=== PATIENT | female | born 2000 | race Caucasian/White ===

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

== ENCOUNTER → 2022-01-28 | Outpatient (CLI) | payer OTHER ==
--- NOTE | 2022-01-29 11:59 | US ---
EXAMINATION TYPE: Ultrasound OB <= 14 week fetus DATE OF EXAM: 01/28/2022 4:30 PM COMPARISON: NONE CLINICAL HISTORY: 21-year-old female Z36.89 Confirm dates. G1. EXAM PERFORMED: Transabdominal (TA) FINDINGS: EXAM MEASUREMENTS: GESTATIONAL AGE / DATING Physician Established: Not yet established. Dates by LMP: (12 weeks/1 day) EDC: 08/11/2022 Dates by First Scan: This is first scan. Dates by Current Scan for: (12 weeks/2 days) EDC: 08/10/2022 MATERNAL ANATOMY Uterus: 16.6 x 9.6 x 7.2 cm. Anteverted. Right Ovary: 3.2 x 2.2 x 1.7 cm. Left Ovary: 2.8 x 2.0 x 1.6 cm. Post CDS / Adnexa: Appear wnl Presence of free fluid: None seen Presence of corpus luteal cyst: None seen Presence of subchorionic bleed: Possible: hypoechoic area seen adjacent the gestational sac: 1.3 x 0. 9 x 0.8 cm to the left and inferiorly GESTATION / SURVEY CRL: 5.77 cm.(12 weeks/2 days) Yolk Sac (normal less than 6mm): 4.4 mm. Heart Rate: 162 bpm Rhythm: Normal IUP: Viable IUP Nuchal Translucency 10-14wks (normal less than 3mm): 1.2 mm. Age Appropriate Anatomy Cord Insertion: Not well seen. Limbs: Limited visibility. Calvarium: Visualized Manager Electronic notes: Exam slightly limited due to body habitus. Date of LMP: 11/04/2021 IMPRESSION: 1. Single live intrauterine with estimated gestational age of 12 weeks 1 day by LMP. Curren t ultrasound biometry is concordant (12 weeks 2 days). 2. Possible small 1.3 cm perigestational bleed inferiorly 3. Complete survey recommended at 18-20 weeks.
== END | disposition home or self-care (01) ==
LOC: RADUSWWP 16:04
PROVIDERS: ATTEND Obstetrics & Gynecology
DX: Z36.89 Encounter for other specified antenatal screening (principal)
CPT/HCPCS: 76801; 76813

== ENCOUNTER 2022-05-18 12:47 | Outpatient (CLI) | payer OTHER ==
[2022-05-18 14:25] LABS: Appearance,Urine Clear (Clear); Bilirubin,Urine Negative (Negative); Blood,Urine Negative (Negative); Color,Urine Light Yellow; Glucose,Urine (UA) Negative (Negative); Ketones,Urine Negative (Negative); Leukocyte Esterase,Urine Negative (Negative); Nitrite,Urine Negative (Negative); Protein,Urine Negative (Negative); Specific Gravity,Urine 1.008 (1.001-1.035); Urobilinogen,Urine <2.0 mg/dL (<2.0)
[2022-05-18 15:11] VITALS: BP 119/74; PULSE 101; RESP 14; TEMP 97.3
--- NOTE | 2022-05-20 07:36 | P.MSEPDOC ---
Presenting Problems - Arrival Data Date of Arrival on Unit: 05/18/22 Time of Arrival on Unit: 12:48 Mode of Transport: Ambulatory - Complaint OB-Reason for Admission/Chief Complaint: Decreased Movement Medical History - Information : 1 Para: 0 Term: 0 : 0 Abortions: Spontaneous or Elective: 0 Number of Living Children: 0 - Gestational Age Gestational Age by SEBASTIEN (wks/days): 27 Weeks and 6 Days Review of Systems - Review of Systems Constitutional: No problems Breast: No problems ENT: No problems Cardiovascular: No problems Respiratory: No problems Gastrointestinal: No problems Genitourinary: No problems Musculoskeletal: No problems Neurological: No problems Skin: No problems Vital Signs - Temperature Temperature: 97.3 F Temperature Source: Temporal Artery Scan - Pulse Right Brachial Pulse Rate: 101 Pulse Assessment Method: Auscultation - Respirations Respiratory Rate: 14 Oxygen Delivery Method: Room Air - Blood Pressure Right Arm Blood Pressure: 119/74 Blood Pressure Mean: 89 Blood Pressure Source: Automatic Cuff Medical Screen Scoring - Cervical Exam Dilation (cm): 0 - Uterine Contractions Frequency From (mins): 3 Frequency To (mins): 5 Duration From (seconds): 30 Duration To (seconds): 4 Intensity: Mild Resting: Soft to palpation - Assessment - Baby A Baseline FHR: 135 Heart Rate - NICHD Category: Category I (Normal) NST: Reactive Physician Notification - Physician Notified Physician Notified Date: 05/18/22 Physician Notified Time: 13:42 Physician: Vee Rincon Order Received: Yes - Notification Comment Comment: ua ordered. reported ua results at 1436. dr rincon discharges pt home Maternal Triage Index - Maternal Triage Index Presenting for scheduled procedure w/no complaint: No - Stat/Priority 1 Stat Priority 1: No - Urgent/Priority 2 Urgent Priority 2: No - Prompt/Priority 3 Prompt Priority 3: No - Non-Urgent/Priority 4 Non-Urgent Priority 4: Yes Criteria Met for Priority 4: cramping, complaints of decreased movement Disposition - Disposition OB Disposition: Discharge to home Discharge Date: 05/18/22 Discharge Time: 14:44 I agree with the RN Medical Screening Exam: Yes Case reviewed; plan agreed upon as documented in EMR&OBIX.: Yes Diagnosis: DECREASED MOVEMENTS, SECOND TRIMESTER, UNSP
== END 2022-05-18 14:44 | disposition home or self-care (01) ==
LOC: FBPOP 12:47
PROVIDERS: ATTEND Obstetrics & Gynecology
DX: O36.8120 Decreased fetal movements, second trimester, not applicable or unspecified (principal); Z3A.27 27 weeks gestation of pregnancy
CPT/HCPCS: 81003; G0463; 99213

== ENCOUNTER 2022-06-05 15:30 | Outpatient (CLI) | payer OTHER ==
[2022-06-05 16:24] VITALS: BP 119/74; PULSE 109; RESP 16; TEMP 97.5
--- NOTE | 2022-06-06 12:12 | P.MSEPDOC ---
Presenting Problems - Arrival Data Date of Arrival on Unit: 06/05/22 Time of Arrival on Unit: 15:30 Mode of Transport: Ambulatory - Complaint OB-Reason for Admission/Chief Complaint: Pain Comment: upper abd pain, headache, floaters in vision Medical History - Information : 1 Para: 0 Term: 0 : 0 Abortions: Spontaneous or Elective: 0 Number of Living Children: 0 - Gestational Age Gestational Age by SEBASTIEN (wks/days): 30 Weeks and 3 Days Review of Systems - Review of Systems Constitutional: No problems Breast: No problems ENT: No problems Cardiovascular: No problems Respiratory: No problems Gastrointestinal: No problems Genitourinary: No problems Musculoskeletal: No problems Neurological: No problems Skin: No problems Vital Signs - Temperature Temperature: 97.5 F Temperature Source: Temporal Artery Scan - Pulse Right Sitting Pulse Rate: 109 Pulse Assessment Method: Automatic Cuff - Respirations Respiratory Rate: 16 Oxygen Delivery Method: Room Air O2 Sat by Pulse Oximetry: 97 - Blood Pressure Right Arm Blood Pressure: 119/74 Blood Pressure Mean: 89 Blood Pressure Source: Automatic Cuff Medical Screen Scoring - Assessment - Baby A Baseline FHR: 135 Heart Rate - NICHD Category: Category I (Normal) NST: Reactive Physician Notification - Physician Notified Physician Notified Date: 06/05/22 Physician Notified Time: 16:10 Physician: Vee Rincon Order Received: Yes (d/c home) Maternal Triage Index - Non-Urgent/Priority 4 Non-Urgent Priority 4: Yes Criteria Met for Priority 4: upper abd pain, headache, floaters, bp 119/74 Disposition - Disposition OB Disposition: Discharge to home Discharge Date: 06/05/22 Discharge Time: 16:17 I agree with the RN Medical Screening Exam: Yes Case reviewed; plan agreed upon as documented in EMR&OBIX.: Yes Diagnosis: RELATED CONDITIONS, UNSPECIFIED, THIRD TRIMESTER
== END 2022-06-05 16:17 | disposition home or self-care (01) ==
LOC: FBPOP 15:30
PROVIDERS: ATTEND Obstetrics & Gynecology
DX: O26.893 Other specified pregnancy related conditions, third trimester (principal); Z3A.30 30 weeks gestation of pregnancy
CPT/HCPCS: 59025; G0463; 99213

== ENCOUNTER 2022-06-18 14:43 | Outpatient (CLI) | payer OTHER ==
[2022-06-18 15:15] LABS: Appearance,Urine Cloudy (Clear); Bacteria,Urine Few /hpf; Bilirubin,Urine Negative (Negative); Blood,Urine Negative (Negative); Color,Urine Yellow; Glucose,Urine (UA) Negative (Negative); Hyaline Casts,Urine 4 /lpf (0-2); Ketones,Urine Negative (Negative); Leukocyte Esterase,Urine Trace (Negative); Mucus,Urine Rare /hpf; Nitrite,Urine Negative (Negative); Protein,Urine Trace (Negative); RBC,Urine <1 /hpf (0-5); Specific Gravity,Urine 1.022 (1.001-1.035); Squamous Epithelial Cell,Urine 7 /hpf (0-4); Urobilinogen,Urine <2.0 mg/dL (<2.0); WBC,Urine 36 /hpf (0-5)
[2022-06-18 15:42] LABS: Basophils % (A) 0 %; Eosinophils # (A) 0.1 k/uL (0-0.7); Eosinophils % (A) 1 %; HGB 12.2 gm/dL (11.4-16.0); Hypochromasia Slight; Lymphocytes # (A) 1.6 k/uL (1.0-4.8); Lymphocytes % (A) 17 %; MCH 28.5 pg (25.0-35.0); Mean Platelet Volume 8.8; Monocytes # (A) 0.6 k/uL (0-1.0); Monocytes % (A) 6 %; Neutrophils # (A) 7.4 k/uL (1.3-7.7); Neutrophils % (A) 75 %; Platelet Count 244 k/uL (150-450); RBC 4.28 m/uL (3.80-5.40); RDW 13.4 % (11.5-15.5); WBC 9.8 k/uL (3.8-10.6)
[2022-06-18 15:47] LABS: ALT 15 U/L (4-34); AST 16 U/L (14-36); African American GFR (CKD) >90 (>60 ml/min/1.73 sqM); Blood Urea Nitrogen 9 mg/dL (7-17); LDH 377 U/L (313-618); Non-African American GFR(CKD) >90 (>60 ml/min/1.73 sqM); Uric Acid 4.2 mg/dL (3.7-7.4)
[2022-06-18 16:20] LABS: Creatinine,Urine Random 148.5 mg/dL; Protein/Creatinine Ratio,Urine 0.061
[2022-06-18 16:47] VITALS: BP 129/69; PULSE 84; RESP 16; TEMP 98
--- NOTE | 2022-07-15 07:59 | P.MSEPDOC ---
Presenting Problems - Arrival Data Date of Arrival on Unit: 06/18/22 Time of Arrival on Unit: 14:43 Mode of Transport: Ambulatory - Complaint OB-Reason for Admission/Chief Complaint: Headache, Visual Disturbances Medical History - Information : 1 Para: 0 Term: 0 : 0 Abortions: Spontaneous or Elective: 0 Number of Living Children: 0 - Gestational Age Gestational Age by SEBASTIEN (wks/days): 32 Weeks and 2 Days Review of Systems - Review of Systems Constitutional: No problems Breast: No problems ENT: No problems Cardiovascular: No problems Respiratory: No problems Gastrointestinal: No problems Genitourinary: No problems Musculoskeletal: No problems Neurological: No problems Skin: No problems Vital Signs - Temperature Temperature: 98.0 F Temperature Source: Oral - Pulse Right Brachial Pulse Rate: 84 Pulse Assessment Method: Automatic Cuff - Respirations Respiratory Rate: 16 Oxygen Delivery Method: Room Air - Blood Pressure Right Arm Blood Pressure: 129/69 Blood Pressure Mean: 89 Blood Pressure Source: Automatic Cuff Medical Screen Scoring - Cervical Exam Membranes: Intact - Assessment - Baby A Baseline FHR: 135 Heart Rate - NICHD Category: Category I (Normal) NST: Reactive Physician Notification - Physician Notified Physician Notified Date: 06/18/22 Physician Notified Time: 16:15 Physician: Rocío Gutierres New Order Received: Yes - Notification Comment Comment: d/c home Maternal Triage Index - Maternal Triage Index Presenting for scheduled procedure w/no complaint: No - Stat/Priority 1 Stat Priority 1: No - Urgent/Priority 2 Urgent Priority 2: No - Prompt/Priority 3 Prompt Priority 3: Yes Criteria Met for Priority 3: c/o headache - Non-Urgent/Priority 4 Non-Urgent Priority 4: No Disposition - Disposition OB Disposition: Discharge to home Discharge Date: 06/18/22 Discharge Time: 16:30 I agree with the RN Medical Screening Exam: Yes Case reviewed; plan agreed upon as documented in EMR&OBIX.: Yes Diagnosis: HEADACHE, UNSPECIFIED
== END 2022-06-18 16:30 | disposition home or self-care (01) ==
LOC: FBPOP 14:43
PROVIDERS: ATTEND Obstetrics & Gynecology
DX: O26.893 Other specified pregnancy related conditions, third trimester (principal); Z3A.32 32 weeks gestation of pregnancy; R51.9 Headache, unspecified
CPT/HCPCS: 59025; 82570; 84156; 82565; 83615; 84450; 84460; 84520; 84550; 85025; 81001; G0463; 99215

== ENCOUNTER → 2022-07-04 | Outpatient (CLI) | payer OTHER ==
[2022-07-04 20:40] VITALS: PULSE 96; RESP 16; TEMP 97.5
--- NOTE | 2022-07-15 08:01 | P.MSEPDOC ---
Presenting Problems - Arrival Data Date of Arrival on Unit: 07/04/22 Time of Arrival on Unit: 12:19 Mode of Transport: Ambulatory - Complaint OB-Reason for Admission/Chief Complaint: Possible Onset of Labor, Other Comment: pt presents to triage after speaking with compliance consultant ob last night (Al) for complaints of possible loss of mucus plug, period like cramps that come and go in back and stomache, pelvic pressure, inttermittent nausea and vomiting but keeping food and fluids down, feelings of dampness in underware unsure if water is broke. All above symptoms have been going on for " 2-3 days Medical History - Information : 1 Para: 0 Term: 0 : 0 Abortions: Spontaneous or Elective: 0 Number of Living Children: 0 - Gestational Age Gestational Age by SEBASTIEN (wks/days): 34 Weeks and 4 Days Review of Systems - Review of Systems Constitutional: No problems Breast: No problems ENT: No problems Cardiovascular: No problems Respiratory: No problems Gastrointestinal: No problems Genitourinary: No problems Musculoskeletal: No problems Neurological: No problems Skin: No problems Vital Signs - Temperature Temperature: 97.5 F Temperature Source: Temporal Artery Scan - Pulse Right Pulse Rate: 96 Pulse Assessment Method: Automatic Cuff - Respirations Respiratory Rate: 16 Oxygen Delivery Method: Room Air O2 Sat by Pulse Oximetry: 98 Medical Screen Scoring - Cervical Exam Dilation (cm): 0 Effacement (%): 0 - Uterine Contractions Frequency From (mins): 0 Frequency To (mins): 0 Duration From (seconds): 0 Duration To (seconds): 0 Resting: Soft to palpation - Assessment - Baby A Baseline FHR: 130 Heart Rate - NICHD Category: Category I (Normal) NST: Reactive Physician Notification - Physician Notified Physician Notified Date: 07/04/22 Physician Notified Time: 14:25 Physician: Rocío Gutierres New Order Received: Yes - Notification Comment Comment: Dr Cleary updated with pts reason for visit, vitals, assessment, cervix closed thick soft. amnisure neg, nst reactive. cat 1 fht. no contractions seen on monitor. pt n/v/headache resolved at present. orders received for pt to be discharged and keep scheduled appt next week Maternal Triage Index - Maternal Triage Index Presenting for scheduled procedure w/no complaint: No - Stat/Priority 1 Stat Priority 1: No - Urgent/Priority 2 Urgent Priority 2: No - Prompt/Priority 3 Prompt Priority 3: Yes Criteria Met for Priority 3: 34 4/ cramping questionable leaking of fluid and mucus Disposition - Disposition OB Disposition: Discharge to home Discharge Date: 07/04/22 Discharge Time: 14:50 I agree with the RN Medical Screening Exam: Yes Case reviewed; plan agreed upon as documented in EMR&OBIX.: Yes Diagnosis: PRIMARY INADEQUATE CONTRACTIONS
== END ==
LOC: FBPOP 12:19
PROVIDERS: ATTEND Obstetrics & Gynecology
DX: O26.893 Other specified pregnancy related conditions, third trimester (principal); Z3A.34 34 weeks gestation of pregnancy; O62.0 Primary inadequate contractions
CPT/HCPCS: 59025; G0463; 99213

== ENCOUNTER 2022-07-31 05:39 | Inpatient (IN) | payer OTHER ==
[2022-07-31] MEDS ORDERED: TERBUTALINE 1 MG/ML VIAL SQ PRN (06:00)
[2022-07-31] MEDS ORDERED: LIDOCAINE 0.5% (PF) 5 MG/ML (50 ML SDV) SQ PRN (06:00)
[2022-07-31] MEDS ORDERED: OXYTOCIN 30 UNITS/500 ML NS 30 UNIT in SALINE 1 500ML.BAG IV SCH ×2 (06:00→21:20)
--- NOTE | 2022-07-31 06:31 | P.HPOB ---
History of Present Illness H&P Date: 07/31/22 Chief Complaint: Leaking of fluid This patient is a pleasant 21-year-old 1 para 0 female estimated date of confinement 08/11/2022 estimated gestational age 38-3/7 weeks who presents to labor and delivery with complaints of gush of fluid earlier this morning. Patient's care is per Dr. Gutierres. It has been complicated by headaches but has had a negative evaluation for preeclampsia. Patient is not having any regular contractions. Review of Systems Genitourinary: Reports Menstruation: Reports amenorrhea Past Medical History Past Medical History: Hypertension History of Any Multi-Drug Resistant Organisms: None Reported Past Surgical History: Adenoidectomy, Ear Surgery, Tonsillectomy Past Anesthesia/Blood Transfusion Reactions: No Reported Reaction Past Psychological History: Depression Smoking Status: Former smoker Past Alcohol Use History: None Reported Past Drug Use History: None Reported Medications and Allergies Home Medications Medication Instructions Recorded Confirmed Type Sertraline HCl [Zoloft] 100 mg PO HS 11/20/17 07/31/22 History Vit No.179/Iron/Folic 1 each PO DAILY 05/18/22 07/31/22 History [ Tablet] Allergies Allergy/AdvReac Type Severity Reaction Status Date / Time No Known Allergies Allergy Verified 07/31/22 05:58 Exam Vital Signs Temp Pulse Resp BP Pulse Ox 07/31/22 05:57 97.8 F 85 18 133/84 97 Intake and Output 07/30/22 07/30/22 07/31/22 14:59 22:59 06:59 Other: Weight 113.398 kg - OBG Physical Exam Vulva: both: normal Vagina: normal moisture, no discharge Cervix: no lesion (Cervix is 1 cm per the RN with gross rupture membranes.), no discharge Uterus: enlarged Results blood work shows she is O positive, rubella immune, RPR nonreactive, hepatitis B negative, HIV is nonreactive, group B strep was negative, Glucola was normal, most recent ultrasound done on July 10 showed 5 lbs. 7 oz. Assessment and Plan Assessment: This is a 21-year-old 1 para 0 female 38-3/7 weeks gestation admitted to labor and delivery with spontaneous rupture membranes. Patient is not having any regular contractions, therefore we'll recheck her in one hour no cervical change I recommended augmentation of labor with Pitocin. Plan is anticipate vaginal delivery. (1) 38 weeks gestation of Current Visit: Yes Status: Acute Code(s): Z3A.38 - 38 WEEKS GESTATION OF SNOMED Code(s): 35054937 (2) Spontaneous rupture of amniotic membranes Current Visit: Yes Status: Acute Code(s): WSW3026 - SNOMED Code(s): 842984395
[2022-07-31] MEDS: LACTATED RINGERS 1,000 ML IV SCH ×2 (06:37→14:58)
[2022-07-31 07:03] LABS: Basophils % (A) 0 %; Eosinophils # (A) 0.1 k/uL (0-0.7); Eosinophils % (A) 1 %; HCT 36.3 % (34.0-46.0); HGB 12.4 gm/dL (11.4-16.0); Lymphocytes # (A) 1.7 k/uL (1.0-4.8); Lymphocytes % (A) 17 %; MCH 27.9 pg (25.0-35.0); MCHC 34.3 g/dL (31.0-37.0); MCV 81.3 fL (80.0-100.0); Mean Platelet Volume 9.1; Monocytes # (A) 0.5 k/uL (0-1.0); Monocytes % (A) 5 %; Neutrophils # (A) 7.6 k/uL (1.3-7.7); Neutrophils % (A) 76 %; Platelet Count 257 k/uL (150-450); RBC 4.46 m/uL (3.80-5.40); RDW 14.5 % (11.5-15.5)
[2022-07-31] MEDS ORDERED: SODIUM CHLORIDE 0.9% 100 ML BAG ONE (09:55)
[2022-07-31] MEDS ORDERED: ROPIVACAINE 5 MG/ML 20 ML AMPULE ONE (09:55)
[2022-07-31] MEDS ORDERED: fentaNYL (PF) 50 MCG/ML 5 ML AMP ONE (09:55)
[2022-07-31] MEDS ORDERED: AMPICILLIN 2,000 MG in SODIUM CHLORIDE 0.9% 100 ML IVPB STA (15:20)
[2022-07-31] MEDS ORDERED: AMPICILLIN 1,000 MG in SODIUM CHLORIDE 0.9% 50 ML IVPB SCH (19:30)
[2022-07-31] MEDS ORDERED: CITRIC ACID-SODIUM CITRATE 15 ML CUP PO ONE (20:07)
[2022-07-31] MEDS ORDERED: ONDANSETRON 4 MG/2 ML VIAL ONE (20:32)
[2022-07-31] MEDS ORDERED: KETOROLAC 15 MG/ML 1 ML VIAL ONE (20:32)
[2022-07-31] MEDS ORDERED: fentaNYL (PF) 50 MCG/ML 2 ML AMP ONE (20:32)
[2022-07-31] MEDS ORDERED: MORPHINE SULFATE (PF) 0.3 MG/0.3 ML SYR ONE (20:32)
[2022-07-31] MEDS ORDERED: OXYTOCIN 30 UNITS/500 ML NS BAG IV ONE (20:32)
[2022-07-31] MEDS ORDERED: MORPHINE SULFATE 2 MG/ML SYRINGE IVP PRN (21:03)
[2022-07-31] MEDS ORDERED: diphenhydrAMINE 50 MG/ML 1 ML VIAL IVP PRN ×3 (21:03→21:20)
[2022-07-31] MEDS ORDERED: ONDANSETRON 4 MG/2 ML VIAL IVP PRN ×2 (21:03→21:20)
[2022-07-31] MEDS ORDERED: NALOXONE 0.4 MG/ML 1 ML VIAL IV PRN ×2 (21:03→21:20)
[2022-07-31] MEDS ORDERED: SIMETHICONE 80 MG CHEWABLE PO PRN (21:20)
[2022-07-31] MEDS ORDERED: LANOLIN CREAM 5 GM TUBE TOPICAL PRN (21:20)
[2022-07-31] MEDS ORDERED: diphenhydrAMINE 25 MG CAP PO PRN (21:20)
[2022-07-31] MEDS ORDERED: ZOLPIDEM 5 MG TAB PO PRN (21:20)
[2022-07-31] MEDS ORDERED: METOCLOPRAMIDE 5 MG/ML 2 ML VIAL IVP PRN (21:20)
[2022-07-31] MEDS ORDERED: diphenhydrAMINE 50 MG CAP PO PRN (21:20)
[2022-07-31] MEDS: KETOROLAC 15 MG/ML 1 ML VIAL IVP SCH (22:48)
[2022-08-01] MEDS: ACETAMINOPHEN TAB 500 MG TAB PO SCH ×5 (02:32→21:37)
[2022-08-01] MEDS: KETOROLAC 15 MG/ML 1 ML VIAL IVP SCH (04:29)
[2022-08-01 07:24] LABS: Basophils % (A) 0 %; Eosinophils % (A) 0 %; HCT 30.8 % (34.0-46.0); HGB 10.3 gm/dL (11.4-16.0); Lymphocytes # (A) 1.2 k/uL (1.0-4.8); Lymphocytes % (A) 9 %; MCH 27.6 pg (25.0-35.0); MCHC 33.4 g/dL (31.0-37.0); MCV 82.6 fL (80.0-100.0); Mean Platelet Volume 9.2; Monocytes # (A) 0.6 k/uL (0-1.0); Monocytes % (A) 5 %; Neutrophils # (A) 10.3 k/uL (1.3-7.7); Neutrophils % (A) 84 %; Platelet Count 204 k/uL (150-450); RBC 3.73 m/uL (3.80-5.40); RDW 14.9 % (11.5-15.5); WBC 12.2 k/uL (3.8-10.6)
--- NOTE | 2022-08-01 07:30 | P.PN ---
Progress Note - Text Date: 08/01/2022 Time: 07:02 The patient is status post section Vital signs stable VAS: 0-10 Patient has no complaints of pain. The patient incurred some minimal itching yesterday, this itching is now subsiding. Pain meds to be managed by service.
[2022-08-01] MEDS: SENNOSIDES-DOCUSATE SODIUM 1 EACH TAB PO SCH (08:07)
[2022-08-01] MEDS: IBUPROFEN 600 MG TAB PO SCH ×3 (08:39→18:30)
[2022-08-01] MEDS: LACTATED RINGERS 1,000 ML IV SCH (08:41)
--- NOTE | 2022-08-01 13:13 | P.OP ---
Date of Procedure: 07/31/22 Preoperative Diagnosis: 1. at 38 weeks and 3 days 2. Category 2 heart tones 3. Arrest of dilation 4. Prolonged rupture of membranes Postoperative Diagnosis: Same Procedure(s) Performed: Primary low transverse Anesthesia: epidural Surgeon: Rocío Gutierres Community Nurse #1: Vee Rincon Estimated Blood Loss (ml): 350 IV fluids (ml): 1,200 Urine output (ml): 200 Pathology: none sent Condition: stable Disposition: floor Indications for Procedure: 21-year-old presented at 38 weeks and 3 days with spontaneous rupture membranes at 1:30 in the morning. When she came and she was started on Pitocin augmentation and did make it to 5 1/2 centimeters. She stayed 5-6 cm for several hours and the baby started to have some variable decelerations and tachycardia. I had started antibiotics at 14 hours ruptured. Category II FHT managed following algorithm including initiation of corrective measure oxygen, IV fluid bolus, position changes and turning off the Pitocin. With the persistent presence of tachycardia, a patient-centered huddle was held and the need for an expedited deliver was discussed with the patient. It is our clinical recommendation to proceed with the delivery and after questions were answered to the patient agrees to proceed with the recommended plan. Operative Findings: Viable male, Apgars 3 at 1 minute, 8 at 5 minutes and 9 at 10 minutes. Weight 6 lbs. 3 oz. Description of Procedure: Patient was taken to the operating room where spinal anesthesia was found be ad equate. She was prepped and draped in normal sterile fashion in dorsal supine position with a leftward tilt. Pfannenstiel skin incision was made the scalpel and carried through to the underlying layer of fascia with the scalpel. Fascia was incised in midline and carried bilaterally with the Barrientos scissors. The superior aspect of the fascial incision was grasped with [place] clamps elevated and the underlying rectus muscles dissected off with the Barrientos's. Attention was then turned to inferior aspect of same incision which in a similar fashion was grasped tented up and the underlying rectus muscles dissected off with the Barrientos's. The rectus muscles were the midline and the peritoneum was identified tented up and entered sharply with the scalpel. The incision was extended superiorly and inferiorly with good visualization of the bladder. The bladder blade was inserted and the vesicouterine peritoneum was incised the Metzenbaums then carried bilaterally and bladder flap created digitally. A low transverse incision was then made on the uterus with the scalpel. This was carried bilaterally and digital manner. Infant's head delivered atraumatically, nose and mouth bulb suctioned, cord clamped and cut, handed off to waiting nurses. Apgars 3,8, 9, weight 6 lbs. 3 oz. Placenta delivered manually, intact with three-vessel cord. The uterus is exteriorized and cleared of all clots and debris. The uterine incision was closed with 0 Vicryl in a running locked fashion. Second layer of the same sutures used in imbricating fashion to obtain excellent hemostasis. Bladder flap was then reapproximated using 2-0 Vicryl in a running fashion. Both ovaries and tubes appeared normal. The uterus was placed back into the abdomen. The peritoneum was reapproximated using 2-0 Vicryl in a running fashion. The muscles were reapproximated using 2- 0 Vicryl in interrupted fashion. The fascia was reapproximated using 0 Vicryl in a running fashion. The subcutaneous tissues closed with 3-0 Vicryl running fashion. The skin was closed george. Patient tolerated the procedure well, sponge and instrument counts were correct times 2 and she was taken to the recovery room in stable condition.
--- NOTE | 2022-08-01 13:14 | P.PNOBGPC ---
Subjective - Subjective Principal diagnosis: Status post primary low transverse postop day 1 Interval history: Patient seen and examined. Denies nausea, vomiting, chest pain, shortness of breath or any calf pain. Patient reports: Reports appetite normal, Reports voiding normally, Reports pain well controlled, Reports ambulating normally : doing well Objective - Vital Signs Latest vital signs: Vital Signs Temp Pulse Resp BP Pulse Ox 08/01/22 08:00 98.0 F 76 16 118/78 08/01/22 04:00 98.4 F 92 17 104/70 99 08/01/22 02:03 99 08/01/22 02:00 18 08/01/22 00:03 17 08/01/22 00:00 98.4 F 91 17 125/57 98 07/31/22 23:20 98.1 F 87 18 128/61 97 07/31/22 22:50 99 18 128/67 97 07/31/22 22:20 95 18 138/61 96 07/31/22 22:05 101 H 18 138/62 96 07/31/22 22:03 18 96 07/31/22 21:50 99.3 F 100 18 111/71 98 07/31/22 21:35 97 18 126/65 96 07/31/22 21:20 99.3 F 97 18 126/65 97 07/31/22 21:03 18 96 Intake and Output 07/31/22 08/01/22 08/01/22 22:59 06:59 14:59 Output Total 789 732 100 Balance -789 -732 -100 Output: Urine 350 700 100 Output, Quantitative 439 32 Blood Loss Other: Voiding Method Indwelling Catheter Indwelling Catheter # Voids 1 - Exam Lungs: bilateral: normal Chest: Normal S1, Normal S2 Extremities: Present: normal Abdomen: Present: normal appearance, soft. Absent: distention, tenderness Incision: Present: normal, dry, intact Uterus: Present: normal, firm - Labs Labs: Abnormal Lab Results - Last 24 Hours (Table) 08/01/22 Range/Units 06:59 WBC 12.2 H (3.8-10.6) k/uL RBC 3.73 L (3.80-5.40) m/uL Hgb 10.3 L (11.4-16.0) gm/dL Hct 30.8 L (34.0-46.0) % Neutrophils # 10.3 H (1.3-7.7) k/uL Assessment and Plan (1) Status post primary low transverse section Current Visit: Yes Status: Acute Code(s): Z98.891 - HISTORY OF UTERINE SCAR FROM PREVIOUS SURGERY SNOMED Code(s): 790026285 Plan: 1. Increase ambulation 2. Pain control
[2022-08-02] MEDS ORDERED: CALCIUM CARBONATE 500 MG CHEWABLE PO ONE (00:10)
[2022-08-02] MEDS: IBUPROFEN 600 MG TAB PO SCH ×2 (00:12→07:31)
[2022-08-02] MEDS: ACETAMINOPHEN TAB 500 MG TAB PO SCH (04:04)
[2022-08-02] MEDS: KETOROLAC 15 MG/ML 1 ML VIAL IVP SCH (04:28)
[2022-08-02] MEDS: SENNOSIDES-DOCUSATE SODIUM 1 EACH TAB PO SCH ×2 (04:29→07:31)
[2022-08-02 07:52] VITALS: BP 133/83; PULSE 86; RESP 16; TEMP 98
--- NOTE | 2022-08-02 09:36 | P.DS ---
Providers Date of admission: 07/31/22 06:07 Expected date of discharge: 08/02/22 Attending physician: Rocío Gutierres Primary care physician: Stated None - Discharge Diagnosis(es) (1) Status post primary low transverse section Current Visit: Yes Status: Acute Hospital Course: Patient presented with spontaneous rupture membranes. She underwent a primary low transverse for arrest of dilation and tachycardia. Postoperative course was uneventful. She denies nausea, vomiting, chest pain, shortness of breath or any calf pain. Patient will be discharged home postoperative day #2 in stable condition to follow-up with me in one week. Plan - Discharge Summary New Discharge Prescriptions: New Ibuprofen [Motrin] 600 mg PO Q6H #30 tab oxyCODONE HCL [OxyIR] 5 mg PO Q4HR PRN #18 tab PRN Reason: Pain Scale 4 - 6 No Action Sertraline HCl [Zoloft] 100 mg PO HS Vit No.179/Iron/Folic [ Tablet] 1 each PO DAILY Discharge Medication List Sertraline HCl [Zoloft] 100 mg PO HS 11/20/17 [History] Vit No.179/Iron/Folic [ Tablet] 1 each PO DAILY 05/18/22 [History] Ibuprofen [Motrin] 600 mg PO Q6H #30 tab 08/02/22 [Rx] oxyCODONE HCL [OxyIR] 5 mg PO Q4HR PRN #18 tab 08/02/22 [Rx] Follow up Appointment(s)/Referral(s): Rocío Gutierres DO [Doctor of Osteopathic Medicine] - 09/16/22 10:45 am (Post Op appointment 08-13-22 at 1:30) Discharge Disposition: HOME SELF-CARE
== END 2022-08-02 13:00 | disposition home or self-care (01) | DRG 788 ==
LOC: FBPOP 05:39 → 4FBP 06:07
PROVIDERS: ADMIT Obstetrics & Gynecology; ATTEND Obstetrics & Gynecology
PROC: 10D00Z1 Extraction of Products of Conception, Low, Open Approach (ICD-10-PCS; principal; 2022-08-01)
DX: O42.92 Full-term premature rupture of membranes, unspecified as to length of time between rupture and onset of labor (principal); O16.4 Unspecified maternal hypertension, complicating childbirth; O62.0 Primary inadequate contractions; O76 Abnormality in fetal heart rate and rhythm complicating labor and delivery; O99.344 Other mental disorders complicating childbirth; F32.A Depression, unspecified; Z37.0 Single live birth; Z3A.38 38 weeks gestation of pregnancy; Z87.891 Personal history of nicotine dependence; Z28.310 Unvaccinated for COVID-19; Z28.21 Immunization not carried out because of patient refusal; Z79.899 Other long term (current) drug therapy
CPT/HCPCS: 59025; 84112; 85025; 86850; 86900; 86901; 99213

== ENCOUNTER → 2023-08-29 | Outpatient (CLI) | payer OTHER ==
--- NOTE | 2023-08-30 20:00 | US ---
EXAMINATION TYPE: Transabdominal DATE OF EXAM: 08/29/2023 2:36 PM COMPARISON: NONE CLINICAL INDICATION: Female, 23 years old with history of Z36.89 ENCOUNTER FOR OTHER SPECIFIED ANTENA OZ SCR; Unknown LMP EXAM PERFORMED: EXAM MEASUREMENTS: GESTATIONAL AGE / DATING Physician Established: Not yet established ( weeks/ days) EDC: Dates by LMP: Unknown LMP ( weeks/ days) EDC: Dates by First Scan: This is first scan ( weeks/ days) EDC: Dates by Current Scan for: (9 weeks/0 days) EDC: 04/02/2024 MATERNAL ANATOMY Uterus: 14.4 x 6.4 x 8.1 cm Right Ovary: 3.0 x 2.2 x 3.0 cm Left Ovary: 2.6 x 1.9 x 2.4 cm Post CDS / Adnexa: WNL Presence of free fluid: NO Presence of corpus luteal cyst: ? Right Ovary Presence of subchorionic bleed: NO GESTATION / SURVEY CRL: 2.64 (9 weeks/3 days) MSD: 3.42 (8 weeks/4 days) Yolk Sac (normal less than 6mm): 0.4 Heart Rate: 171 bpm Rhythm: Normal IUP: Viable IUP Nuchal Translucency 10-14wks (normal less than 3mm): NA Age Appropriate Anatomy Cord Insertion: NA Limbs: NA Calvarium: NA Date of LMP: Unknown Beta HcG (if available): Not available TV done to confirm heart rate and visualize yolk sac Urinary bladder is sonolucent. Posterior wall is normal. IMPRESSION: 1. Single intrauterine gestation estimated at 9 weeks 3 days gestation based on crown-rump length. Ca rdiac activity measures 171 bpm.
== END | disposition home or self-care (01) ==
LOC: RADUSWWP 14:04
PROVIDERS: ATTEND Obstetrics & Gynecology
DX: Z36.89 Encounter for other specified antenatal screening (principal); Z3A.10 10 weeks gestation of pregnancy
CPT/HCPCS: 76801; 76817

== ENCOUNTER → 2023-11-10 | Outpatient (CLI) | payer OTHER ==
--- NOTE | 2023-11-10 23:23 | US ---
EXAMINATION TYPE: US OB anatomy transabd DATE OF EXAM: 11/10/2023 COMPARISON: NONE CLINICAL INDICATION: Female, 23 years old with history of O36.62X0 LARGE FOR DATES; anatomy exa m TECHNIQUE: Transabdominal (TA) EXAM MEASUREMENTS: GESTATIONAL AGE / DATING Physician Established: (19 weeks/3 days) EDC: 04/02/2024 Dates by LMP: ( weeks/ days) EDC: Dates by First Scan: (19 weeks/3 days) EDC: 04/02/2024 Dates by Current Scan for: (20 weeks/6 days) EDC: 03/23/2024 SURVEY IUP: Single PLACENTA: Anterior PREVIA: Low Lying RAVINDRA: 15.10 cm Normal CERVICAL LENGTH (transabdominal: norm > 3.0cm): 3.7 cm BIOMETRY PRESENTATION: Variable LIE: Oblique BPD: 4.9 cm 20 weeks / 6 days HC: 18.0 cm 20 weeks / 4 days AC: 16.2 cm 21 weeks / 2 days FL: 3.4 cm 20 weeks / 5 days ESTIMATED WEIGHT IN GRAMS: 388 grams ESTIMATED WEIGHT IN LBS/OZ: 0 lbs. 14 oz. WEIGHT PERCENTAGE BASED ON ESTABLISHED DATE: 98 % HC/AC: 1.11 Normal FL/AC: 21% Normal HEART RATE: 129 bpm RHYTHM: Normal ANATOMY SEEN (within normal limits): * Lateral Vent (< 1 cm) 0.76 cm * Cisterna Magna (< 1.1 cm) 0.43 cm * Nuchal Fold (< 0.6 cm) 0.5 cm * Cerebellum (varies with age) 2.16 cm Choroid Plexus (bilateral) Midline Falx Cavus Septi Pellucidi Outflow tracts: LVOT/RVOT Stomach Situs Nose / Lips Diaphragm Kidneys (bilateral) Bladder Cord Insert Three Vessel Cord Arms (bilateral) Legs (bilateral) ANATOMY SEEN (does not appear within normal limits): ANATOMY NOT SEEN: Full spine, and 4 chamber heart IMPRESSION: Single intrauterine gestation estimated at 20 weeks 6 days gestation based on current ultrasound lesley urements. Cardiac activity measures 129 bpm. 2. A 4 chamber heart were not clearly delineated on the current examination. Follow-up will be perfor med.
== END | disposition home or self-care (01) ==
LOC: RADUSWWP 14:33
PROVIDERS: ATTEND Obstetrics & Gynecology
DX: O36.62X1 Maternal care for excessive fetal growth, second trimester, fetus 1 (principal); Z3A.21 21 weeks gestation of pregnancy
CPT/HCPCS: 76811

== ENCOUNTER → 2023-11-24 | Outpatient (CLI) | payer OTHER | END | disposition home or self-care (01) | LOC: RADUSWWP 15:18 | PROVIDERS: ATTEND Obstetrics & Gynecology | DX: Z53.9 Procedure and treatment not carried out, unspecified reason (principal) ==

== ENCOUNTER 2024-03-16 00:29 | Inpatient (IN) | payer OTHER ==
[2024-03-16] MEDS ORDERED: TRANEXAMIC 1,000 MG/100ML-NACL 1,000 MG in EMPTY BAG 1 BAG IV PRN (00:59)
[2024-03-16] MEDS ORDERED: OXYTOCIN 10 UNIT/ML 1 ML VIAL IM PRN (00:59)
[2024-03-16] MEDS ORDERED: CARBOPROST TROMETHAMINE 250 MCG/ML 1 ML AMP IM PRN (00:59)
[2024-03-16] MEDS ORDERED: METHYLERGONOVINE 0.2 MG/ML 1 ML AMP IM PRN (00:59)
[2024-03-16] MEDS ORDERED: miSOPROStoL 200 MCG TAB PO PRN (00:59)
[2024-03-16] MEDS ORDERED: OXYTOCIN 30 UNITS/500 ML NS 30 UNIT in SALINE 1 500ML.BAG IV SCH ×2 (01:00→02:30)
[2024-03-16] MEDS: CITRIC ACID-SODIUM CITRATE 15 ML CUP PO ONE (01:15)
[2024-03-16 01:28] LABS: Basophils % (A) 0 %; Eosinophils # (A) 0.1 k/uL (0-0.7); Eosinophils % (A) 1 %; HCT 39.4 % (34.0-46.0); HGB 13.2 gm/dL (11.4-16.0); Lymphocytes # (A) 1.8 k/uL (1.0-4.8); Lymphocytes % (A) 14 %; MCH 28.2 pg (25.0-35.0); MCHC 33.6 g/dL (31.0-37.0); MCV 83.8 fL (80.0-100.0); Monocytes # (A) 0.7 k/uL (0-1.0); Monocytes % (A) 5 %; Neutrophils # (A) 10.2 k/uL (1.3-7.7); Neutrophils % (A) 79 %; Platelet Count 226 k/uL (150-450)
[2024-03-16 02:10] VITALS: RESP 16
[2024-03-16] MEDS ORDERED: NALOXONE 0.4 MG/ML 1 ML VIAL IV PRN (02:20)
[2024-03-16] MEDS ORDERED: ONDANSETRON 4 MG/2 ML VIAL IVP PRN (02:20)
[2024-03-16] MEDS ORDERED: ZOLPIDEM 5 MG TAB PO PRN (02:20)
[2024-03-16] MEDS ORDERED: diphenhydrAMINE 50 MG/ML 1 ML VIAL IVP PRN ×2 (02:20)
[2024-03-16] MEDS ORDERED: LANOLIN CREAM 1 GM TUBE TOPICAL PRN (02:20)
[2024-03-16] MEDS ORDERED: diphenhydrAMINE 50 MG CAP PO PRN (02:20)
[2024-03-16] MEDS ORDERED: METOCLOPRAMIDE 5 MG/ML 2 ML VIAL IVP PRN (02:20)
--- NOTE | 2024-03-16 02:23 | P.HPOB ---
History of Present Illness H&P Date: 03/16/24 Chief Complaint: labor, previous 23 year old presents at 37 weeks 4 days in labor. Janak every 2-3 minutes. heart tones are category 1. Her cervix went from 1 cm and 50% effaced yesterday to 3 cm dilated, 70% effaced now. Review of Systems All systems: negative Constitutional: Denies chills, Denies fever Eyes: denies blurred vision, denies pain Ears, nose, mouth and throat: Denies headache, Denies sore throat Cardiovascular: Denies chest pain, Denies shortness of breath Respiratory: Denies cough Gastrointestinal: Denies abdominal pain, Denies diarrhea, Denies nausea, Denies vomiting Genitourinary: Denies dysuria, Denies hematuria Musculoskeletal: Denies myalgias Integumentary: Denies pruritus, Denies rash Neurological: Denies numbness, Denies weakness Psychiatric: Denies anxiety, Denies depression Endocrine: Denies fatigue, Denies weight change Past Medical History Past Medical History: Hypertension History of Any Multi-Drug Resistant Organisms: None Reported Past Surgical History: Adenoidectomy, Ear Surgery, Tonsillectomy Past Anesthesia/Blood Transfusion Reactions: No Reported Reaction Past Psychological History: Depression Smoking Status: Never smoker Past Alcohol Use History: None Reported Past Drug Use History: None Reported - Past Family History Mother Family Medical History: No Reported History Medications and Allergies Home Medications Medication Instructions Recorded Confirmed Type Sertraline HCl [Zoloft] 100 mg PO HS 11/20/17 03/16/24 History Vit No.179/Iron/Folic 1 each PO DAILY 05/18/22 03/16/24 History [ Tablet] Allergies Allergy/AdvReac Type Severity Reaction Status Date / Time No Known Allergies Allergy Verified 03/16/24 00:36 Exam Osteopathic Statement: *. No significant issues noted on an osteopathic structural exam other than those noted in the History and Physical/Consult. Vital Signs Temp Pulse Resp BP Pulse Ox 03/16/24 00:34 97.1 F L 91 16 137/88 98 Intake and Output 03/15/24 03/15/24 03/16/24 14:59 22:59 06:59 Other: Weight 114.759 kg Heart: Regular rate and rhythm Lungs: Clear to auscultation bilaterally Abdomen: Soft, nontender Extremities: Negative Homans sign Results Result Diagrams: 03/16/24 01:04 Abnormal Lab Results - Last 24 Hours (Table) 03/16/24 Range/Units 01:04 WBC 13.0 H (3.8-10.6) k/uL RDW 16.0 H (11.5-15.5) % Neutrophils # 10.2 H (1.3-7.7) k/uL Assessment and Plan (1) Previous section Current Visit: Yes Status: Acute Code(s): Z98.891 - HISTORY OF UTERINE SCAR FROM PREVIOUS SURGERY SNOMED Code(s): 601121601 (2) 37 weeks gestation of Current Visit: Yes Status: Acute Code(s): Z3A.37 - 37 WEEKS GESTATION OF SNOMED Code(s): 23010231 (3) Normal labor Current Visit: Yes Status: Acute Code(s): O80 - ENCOUNTER FOR FULL-TERM UNCOMPLICATED DELIVERY; Z37.9 - OUTCOME OF DELIVERY, UNSPECIFIED SNOMED Code(s): 98961099 Plan: 1. Repeat low transverse
--- NOTE | 2024-03-16 02:26 | P.OP ---
Date of Procedure: 03/16/24 Preoperative Diagnosis: 1. at 37 weeks and 4 days 2. Normal labor 3. Previous section Postoperative Diagnosis: Same Procedure(s) Performed: Repeat low transverse Anesthesia: spinal Surgeon: Rocío Gutierres [employer] Cart Repairer #1: Morena Melgoza Estimated Blood Loss (ml): 313 IV fluids (ml): 900 Urine output (ml): 50 Pathology: none sent Condition: stable Disposition: floor Operative Findings: Viable male, Apgars 9, 10, weight 7 lbs. 13 oz. normal uterus, tubes, ovaries Description of Procedure: Patient was taken to the operating room where spinal anesthesia was found be adequate. She was prepped and draped in normal sterile fashion in dorsal supine position with a leftward tilt. Pfannenstiel skin incision was made the scalpel and carried through to the underlying layer of fascia with the scalpel. Fascia was incised in midline and carried bilaterally with the Barrientos scissors. The superior aspect of the fascial incision was grasped with [place] clamps elevated and the underlying rectus muscles dissected off with the Barrientos's. Attention was then turned to inferior aspect of same incision which in a similar fashion was grasped tented up and the underlying rectus muscles dissected off with the Barrientos's. The rectus muscles were the midline and the peritoneum was identified tented up and entered sharply with the scalpel. The incision was extended superiorly and inferiorly with good visualization of the bladder. The bladder blade was inserted and the vesicouterine peritoneum was incised the Metzenbaums then carried bilaterally and bladder flap created digitally. A low transverse incision was then made on the uterus with the scalpel. This was carried bilaterally and digital manner. Infant's head delivered atraumatically, nose and mouth bulb suctioned, cord clamped and cut, handed off to waiting nurses. Apgars 9,10, weight 7lbs. 13 oz. Placenta delivered manually, intact with three-vessel cord. The uterus is exteriorized and cleared of all clots and debris. The uterine incision was closed with 0 Vicryl in a running locked fashion. Second layer of the same sutures used in imbricating fashion to obtain excellent hemostasis. The muscles were Noted to be bleeding in the right upper quadrant. Stitch was used to try to stop the bleeding and then surgical some was also used and hemostasis was assured.. The fascia was reapproximated using 0 Vicryl in a running fashion. The subcutaneous tissues closed with 3-0 Vicryl running fashion. The skin was closed george. Patient tolerated the procedure well, sponge and instrument counts were correct times 2 and she was taken to the recovery room in stable condition.
[2024-03-16] MEDS: LACTATED RINGERS 1,000 ML IV SCH (03:41)
[2024-03-16] MEDS: ACETAMINOPHEN TAB 500 MG TAB PO SCH (04:41)
[2024-03-16] MEDS: SENNOSIDES-DOCUSATE SODIUM 1 EACH TAB PO SCH (08:19)
[2024-03-16] MEDS: KETOROLAC 15 MG/ML 1 ML VIAL IVP SCH (08:19)
[2024-03-16] MEDS: IBUPROFEN 600 MG TAB PO SCH (11:11)
[2024-03-16] MEDS: SIMETHICONE 80 MG CHEWABLE PO PRN (11:15)
[2024-03-16] MEDS: diphenhydrAMINE 25 MG CAP PO PRN (20:23)
--- NOTE | 2024-03-17 07:23 | P.PN ---
Progress Note - Text Progress Note Date: 03/17/24 Patient was seen and examined at bed side. Received intrathecal morphine 300 mcg for postop pain control as per surgeon request. Today postop day 1 -C- section . Today complaining her pain levels 2-3 out of 10 in severity. Able to ambulate without any difficulty. Denied any weakness. Mild itching. Physical exam: Vitals : stable vitals, afebrile Assessment and plan: S/p postop day 1 - . Continue oral pain medications as needed as per primary care. Please contact anesthesia as needed.
[2024-03-17 08:24] LABS: Anisocytosis Slight; Basophils % (A) 0 %; Eosinophils # (A) 0.1 k/uL (0-0.7); Eosinophils % (A) 1 %; HCT 37.9 % (34.0-46.0); HGB 12.1 gm/dL (11.4-16.0); Lymphocytes # (A) 1.9 k/uL (1.0-4.8); Lymphocytes % (A) 17 %; MCH 27.3 pg (25.0-35.0); MCHC 31.9 g/dL (31.0-37.0); MCV 85.5 fL (80.0-100.0); Mean Platelet Volume 8.9; Monocytes # (A) 0.6 k/uL (0-1.0); Monocytes % (A) 6 %; Neutrophils # (A) 8.3 k/uL (1.3-7.7); Neutrophils % (A) 75 %; Platelet Count 221 k/uL (150-450); RBC 4.43 m/uL (3.80-5.40); WBC 11.1 k/uL (3.8-10.6)
--- NOTE | 2024-03-17 12:03 | P.PNOBGPC ---
Subjective - Subjective Principal diagnosis: S/P RLTCS POD #1 Interval history: Pt seen and examined. Denies N/V, F/C, CP, SOB or calf pain Patient reports: Reports appetite normal, Reports voiding normally, Reports pain well controlled, Reports ambulating normally [place]: doing well Objective - Vital Signs Latest vital signs: Vital Signs Temp Pulse Resp BP Pulse Ox 03/17/24 08:00 98.0 F 84 16 110/68 99 03/17/24 00:45 97.8 F 80 16 112/73 98 03/16/24 20:28 97.9 F 90 16 97/68 97 03/16/24 16:01 97.9 F 82 16 98/61 97 03/16/24 12:29 97.9 F 87 16 85/61 97 Intake and Output 03/16/24 03/17/24 03/17/24 22:59 06:59 14:59 Output Total 700 Balance -700 Output: Urine 700 Other: # Voids 1 1 - Exam Lungs: bilateral: normal Chest: Normal S1, Normal S2 Extremities: Present: normal Abdomen: Present: normal appearance, soft. Absent: distention, tenderness Incision: Present: normal, dry, intact Uterus: Present: normal, firm - Labs Labs: Abnormal Lab Results - Last 24 Hours (Table) 03/17/24 Range/Units 07:54 WBC 11.1 H (3.8-10.6) k/uL RDW 16.0 H (11.5-15.5) % Neutrophils # 8.3 H (1.3-7.7) k/uL Assessment and Plan (1) Previous section Current Visit: Yes Status: Acute Code(s): Z98.891 - HISTORY OF UTERINE SCAR FROM PREVIOUS SURGERY SNOMED Code(s): 854699519 (2) 37 weeks gestation of Current Visit: Yes Status: Acute Code(s): Z3A.37 - 37 WEEKS GESTATION OF SNOMED Code(s): 81770099 (3) Normal labor Current Visit: Yes Status: Acute Code(s): O80 - ENCOUNTER FOR FULL-TERM UNCOMPLICATED DELIVERY; Z37.9 - OUTCOME OF DELIVERY, UNSPECIFIED SNOMED Code(s): 52418193 Plan: 1. cont po care
[2024-03-18 09:04] VITALS: BP 120/85; PULSE 90; TEMP 97.8
--- NOTE | 2024-03-18 12:13 | P.DS ---
Providers Date of admission: 03/16/24 00:52 Expected date of discharge: 03/18/24 Attending physician: Rocío Gutierres Primary care physician: Stated None - Discharge Diagnosis(es) (1) Previous section Current Visit: Yes Status: Acute (2) 37 weeks gestation of Current Visit: Yes Status: Acute (3) Normal labor Current Visit: Yes Status: Acute Hospital Course: She underwent repeat low transverse . Postoperative course was uneventful. She denies nausea, vomiting, chest pain, sugars of breath or calf pain. Patient will be discharged home postoperative day #2 in stable condition to follow-up with me in 2 weeks. Plan - Discharge Summary New Discharge Prescriptions: No Action Sertraline HCl [Zoloft] 100 mg PO HS Vit No.179/Iron/Folic [ Tablet] 1 each PO DAILY Discharge Medication List Sertraline HCl [Zoloft] 100 mg PO HS 11/20/17 [History] Vit No.179/Iron/Folic [ Tablet] 1 each PO DAILY 05/18/22 [History] Follow up Appointment(s)/Referral(s): Rocío Gutierres DO [Doctor of Osteopathic Medicine] - 03/30/24 11:00 am (Post Appointment 04-27-2024 at 1:15pm) Patient Instructions/Handouts: (DC) Discharge Disposition: HOME SELF-CARE
== END 2024-03-18 12:45 | disposition home or self-care (01) | DRG 540 ==
LOC: FBPOP 00:29 → 4FBP 00:52
PROVIDERS: ADMIT Obstetrics & Gynecology; ATTEND Obstetrics & Gynecology
PROC: 10D00Z1 Extraction of Products of Conception, Low, Open Approach (ICD-10-PCS; principal; 2024-03-16 00:57)
DX: O34.211 Maternal care for low transverse scar from previous cesarean delivery (principal); F32.A Depression, unspecified; O16.4 Unspecified maternal hypertension, complicating childbirth; O99.344 Other mental disorders complicating childbirth; Z37.0 Single live birth; Z3A.37 37 weeks gestation of pregnancy; O99.73 Diseases of the skin and subcutaneous tissue complicating the puerperium; L29.9 Pruritus, unspecified
CPT/HCPCS: 59025; 85025; 86850; 86900; 86901; 99213